=== PATIENT | female | born 1980 | race Caucasian/White ===

== ENCOUNTER 2017-08-09 18:12 | Emergency (ER) | payer OTHER, MEDICAID ==
[~2017-08-09] VITALS: Ht 170.2 cm; Wt 83.9 kg
[2017-08-09] MEDS ORDERED: CLONAZEPAM 0.50.5 M1 PO (18:24)
[2017-08-09] MEDS ORDERED: NORCO 5-325 TA1 EAC1 PO ×2 (19:18→19:19)
[2017-08-09 19:27] VITALS: BP 143/77
[2017-08-10] MEDS ORDERED: IBUPROFEN 800800 M1 PO (11:58)
[2017-08-10] MEDS ORDERED: HYDROCODONE-AP1 EAC6 PO (11:58)
== END 2017-08-09 19:27 | disposition home or self-care (01) ==
LOC: M.ERS 18:12
DX: S92.511A Displaced fracture of proximal phalanx of right lesser toe(s), initial encounter for closed fracture (principal); W18.39XA Other fall on same level, initial encounter; Y93.89 Activity, other specified; Y92.89 Other specified places as the place of occurrence of the external cause; Y99.8 Other external cause status

== ENCOUNTER 2017-08-10 11:12 | Emergency (ER) | payer OTHER, MEDICAID ==
[~2017-08-10] VITALS: Ht 170.2 cm; Wt 83.9 kg
[~2017-08-10 11:12] MED LIST: CLONAZEPAM 0.50.5 M1 PO; NORCO 5-325 TA1 EAC1 PO
[2017-08-10] MEDS ORDERED: IBUPROFEN 800800 M1 PO (11:58)
[2017-08-10] MEDS ORDERED: HYDROCODONE-AP1 EAC6 PO (11:58)
[2017-08-10 12:38] VITALS: BP 137/81
== END 2017-08-10 12:38 | disposition home or self-care (01) ==
LOC: M.ERS 11:12
DX: S92.511D Displaced fracture of proximal phalanx of right lesser toe(s), subsequent encounter for fracture with routine healing (principal); W06.XXXD Fall from bed, subsequent encounter

== ENCOUNTER 2017-10-19 19:56 | Emergency (ER) | payer OTHER, MEDICAID ==
[~2017-10-19] VITALS: Ht 170.2 cm; Wt 81.7 kg
[~2017-10-19 19:56] MED LIST changes: +HYDROCODONE-AP1 EAC6 PO; +IBUPROFEN 800800 M1 PO
[2017-10-19] MEDS ORDERED: ZOLOFT (20:05)
[2017-10-19] MEDS ORDERED: BUSPAR (20:05)
[2017-10-19 20:34] LABS: ABSOLUTE BASOPHILS 0.1 thou/uL (0.0-0.2); ABSOLUTE EOSINOPHILS 0.1 thou/uL (0.0-0.7); ABSOLUTE LYMPHOCYTES 3.1 thou/uL (0.8-5.3); ABSOLUTE MONOCYTES 0.9 thou/uL (0.0-1.2); ABSOLUTE NEUTROPHILS 7.9 thou/uL (1.6-8.1); BASOPHILS 0.9 %; HEMATOCRIT 36.9 % (37.0-47.0); HEMOGLOBIN 12.4 gm/dL (12.0-15.0); LYMPHOCYTES 25.3 %; MCH 29.9 pg (26.0-34.0); MCHC 33.5 g/dL (28.0-37.0); MCV 89.1 fL (80.0-100.0); MONOCYTES 7.5 %; MPV 8.1 fl. (7.2-11.1); NUCLEATED RBCS 0 /100WBC; PLATELET COUNT* 250 thou/uL (150-400); POLYS 65.3 %; RBC 4.14 mil/uL (4.20-5.00); RDW-CV 14.7 % (10.5-14.5); WBC 12.2 thou/uL (4.0-11.0)
[2017-10-19 20:41] LABS: ANION GAP 8 mmol/L (7-16); BUN 10 mg/dL (7-18); CALCIUM 8.2 mg/dL (8.5-10.1); CHLORIDE 107 mmol/L (98-107); CO2 27 mmol/L (21-32); CREATININE 0.6 mg/dL (0.6-1.3); GLUCOSE 117 mg/dL (70-99); POTASSIUM 3.6 mmol/L (3.5-5.1); SODIUM 142 mmol/L (136-145)
[2017-10-19 20:48] LABS: ALBUMIN 3.3 g/dL (3.4-5.0); ALKALINE PHOSPHATASE 81 U/L (46-116); LIPASE 301 U/L (73-393); SGOT 31 U/L (15-37); SGPT 32 U/L (30-65); TOTAL BILIRUBIN 0.1 mg/dL (<0.1-1.0); TOTAL PROTEIN 6.4 g/dL (6.4-8.2); TROPONIN-I LEVEL <0.06 ng/mL (<0.06)
[2017-10-19 21:11] LABS: URINE BILIRUBIN NEGATIVE (Negative); URINE BLOOD TRACE (Negative); URINE CLARITY CLEAR; URINE COLOR STRAW; URINE GLUCOSE-RANDOM NEGATIVE (Negative); URINE KETONES NEGATIVE (Negative); URINE LEUKOCYTES-REFLEX 2+ (Negative); URINE NITRITE-REFLEX NEGATIVE (Negative); URINE PROTEIN NEGATIVE (Negative); URINE SPECIFIC GRAVITY <= 1.005 (1.005-1.030); URINE UROBILINOGEN 0.2 E.U./dl (0.2-1.0)
[2017-10-19 21:17] LABS: SQUAMOUS 4-10 Moderate /LPF (0-3)
[2017-10-19 21:17] LABS: AMP/METHAMP Negative (Negative); BARBITURATES POSITIVE (Negative); BENZODIAZEPINES POSITIVE (Negative); COCAINE Negative (Negative); METHADONE Negative (Negative); OPIATES Negative (Negative); PCP Negative (Negative); THC Negative (Negative)
[2017-10-19 21:18] LABS: BACTERIA-REFLEX None Seen /HPF (None Seen); CASTS None Seen /LPF (None Seen); CRYSTALS None Seen /LPF (None Seen); MUCUS 0-3 Light strn/LPF (None Seen); URINE RBC None Seen /HPF (0-2); URINE WBC-REFLEX 0-5 Rare /HPF (0-5)
[2017-10-19 22:17] VITALS: BP 137/86
--- NOTE | 2017-10-20 14:48 | EKG ---
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
== END 2017-10-19 22:18 | disposition home or self-care (01) ==
LOC: M.ERS 19:56
PROVIDERS: Emergency Medicine
DX: R07.89 Other chest pain (principal); F17.210 Nicotine dependence, cigarettes, uncomplicated

== ENCOUNTER 2018-04-09 11:52 | Emergency (ER) | payer OTHER, MEDICAID ==
[~2018-04-09] VITALS: Ht 170.2 cm; Wt 90.7 kg
[~2018-04-09 11:52] MED LIST changes: +BUSPAR; +ZOLOFT
[2018-04-09] MEDS ORDERED: ZOLOFT50 MG PO (12:08)
[2018-04-09] MEDS ORDERED: ABILIFY10 MG PO (12:08)
[2018-04-09] MEDS ORDERED: CLONAZEPAM 0.50.5 M1 PO (12:09)
[2018-04-09] MEDS ORDERED: BUSPIRONE HCL10 MG PO (12:10)
[2018-04-09 12:13] LABS: URINE BILIRUBIN NEGATIVE (Negative); URINE BLOOD 2+ (Negative); URINE CLARITY CLEAR; URINE COLOR YELLOW; URINE GLUCOSE-RANDOM NEGATIVE (Negative); URINE KETONES TRACE (Negative); URINE LEUKOCYTES-REFLEX NEGATIVE (Negative); URINE NITRITE-REFLEX NEGATIVE (Negative); URINE PROTEIN 1+ (Negative); URINE SPECIFIC GRAVITY >= 1.030 (1.005-1.030); URINE UROBILINOGEN 0.2 E.U./dl (0.2-1.0)
[2018-04-09 12:22] LABS: BACTERIA-REFLEX 1-9 Few /HPF (None Seen); CASTS None Seen /LPF (None Seen); CRYSTALS None Seen /LPF (None Seen); MUCUS 4-6 Moderate strn/LPF (None Seen); SQUAMOUS 0-3 Few /LPF (0-3); URINE RBC 3-10 Few /HPF (0-2); URINE WBC-REFLEX 0-5 Rare /HPF (0-5)
[2018-04-09 12:23] LABS: ABSOLUTE BASOPHILS 0.1 thou/uL (0.0-0.2); ABSOLUTE EOSINOPHILS 0.1 thou/uL (0.0-0.7); ABSOLUTE LYMPHOCYTES 2.4 thou/uL (0.8-5.3); ABSOLUTE MONOCYTES 0.8 thou/uL (0.0-1.2); ABSOLUTE NEUTROPHILS 6.2 thou/uL (1.6-8.1); BASOPHILS 1.3 %; EOSINOPHILS 0.5 %; HEMATOCRIT 38.7 % (37.0-47.0); HEMOGLOBIN 12.9 gm/dL (12.0-15.0); LYMPHOCYTES 24.5 %; MCH 29.6 pg (26.0-34.0); MCHC 33.5 g/dL (28.0-37.0); MCV 88.5 fL (80.0-100.0); MONOCYTES 8.8 %; MPV 7.5 fl. (7.2-11.1); NUCLEATED RBCS 0 /100WBC; PLATELET COUNT* 400 thou/uL (150-400); POLYS 64.9 %; RBC 4.37 mil/uL (4.20-5.00); RDW-CV 14.5 % (10.5-14.5); WBC 9.6 thou/uL (4.0-11.0)
[2018-04-09 12:34] LABS: CALCIUM 8.2 mg/dL (8.5-10.1); CREATININE 0.6 mg/dL (0.6-1.3); POTASSIUM 3.2 mmol/L (3.5-5.1)
[2018-04-09 12:38] LABS: ALBUMIN 3.6 g/dL (3.4-5.0); TOTAL BILIRUBIN 0.2 mg/dL (<0.1-1.0); TOTAL PROTEIN 7.4 g/dL (6.4-8.2)
[2018-04-09] MEDS ORDERED: IBUPROFEN 800800 M1 PO (12:47)
[2018-04-09 13:08] VITALS: BP 128/83
== END 2018-04-09 13:08 | disposition home or self-care (01) ==
LOC: M.ERS 11:52
PROVIDERS: Nurse Practitioner Family
DX: R10.30 Lower abdominal pain, unspecified (principal); R19.7 Diarrhea, unspecified; F17.210 Nicotine dependence, cigarettes, uncomplicated

== ENCOUNTER 2018-06-25 14:19 | Emergency (ER) | payer OTHER, MEDICAID ==
[~2018-06-25] VITALS: Ht 170.2 cm; Wt 90.7 kg
[~2018-06-25 14:19] MED LIST changes: +ABILIFY10 MG PO; +BUSPIRONE HCL10 MG PO; +ZOLOFT50 MG PO
[2018-06-25] MEDS ORDERED: KEFLEX500 M1 PO (14:59)
[2018-06-25] MEDS ORDERED: LIDOCAINE VISC100 ML TOP (14:59)
[2018-06-25 15:18] VITALS: BP 130/86
== END 2018-06-25 15:18 | disposition home or self-care (01) ==
LOC: M.ERS 14:19
DX: L97.129 Non-pressure chronic ulcer of left thigh with unspecified severity (principal); N80.9 Endometriosis, unspecified; F17.210 Nicotine dependence, cigarettes, uncomplicated

== ENCOUNTER 2018-07-14 11:42 | Emergency (ER) | payer OTHER, MEDICAID ==
[~2018-07-14] VITALS: Ht 170.2 cm; Wt 90.7 kg
[~2018-07-14 11:42] MED LIST changes: +KEFLEX500 M1 PO; +LIDOCAINE VISC100 ML TOP
[2018-07-14] MEDS ORDERED: HYDROCODONE-AP1 EAC6 PO (12:50)
[2018-07-14] MEDS ORDERED: KEFLEX500 M1 PO (12:50)
[2018-07-14 13:04] VITALS: BP 136/92
== END 2018-07-14 13:05 | disposition home or self-care (01) ==
LOC: M.ERS 11:42
DX: L02.416 Cutaneous abscess of left lower limb (principal); N80.9 Endometriosis, unspecified; F17.210 Nicotine dependence, cigarettes, uncomplicated

== ENCOUNTER 2018-08-22 10:54 | Emergency (ER) | payer OTHER, MEDICAID ==
[~2018-08-22] VITALS: Ht 170.2 cm; Wt 97.5 kg
[2018-08-22] MEDS ORDERED: SINEMET 10-1001 EAC1 PO (11:06)
[2018-08-22] MEDS ORDERED: ZOLOFT25 MG PO (11:07)
[2018-08-22] MEDS ORDERED: ACETAMINOPHEN-1 EAC1 PO (11:27)
[2018-08-22] MEDS ORDERED: ROBITUSSIN100 MG/53 PO (11:27)
[2018-08-22] MEDS ORDERED: TESSALON PERLE100 MG PO (11:27)
[2018-08-22] MEDS ORDERED: ZPAK PO (11:27)
[2018-08-22] MEDS ORDERED: MEDROLDOSEPACK PO (11:27)
[2018-08-22 11:39] VITALS: BP 119/74
== END 2018-08-22 11:39 | disposition home or self-care (01) ==
LOC: M.ERS 10:54
DX: J20.9 Acute bronchitis, unspecified (principal); F17.210 Nicotine dependence, cigarettes, uncomplicated

== ENCOUNTER 2019-02-17 13:40 | Emergency (ER) | payer OTHER, MEDICAID ==
[~2019-02-17] VITALS: Ht 170.2 cm; Wt 99.8 kg
[~2019-02-17 13:40] MED LIST changes: +ACETAMINOPHEN-1 EAC1 PO; +AUGMENTIN 875-1 EACH PO; +BACLOFEN5 MG PO; +FLAGYL500 M1 PO; +MEDROLDOSEPACK PO; +ONDANSETRON HCL4 M2 PO; +ROBITUSSIN100 MG/53 PO; +SINEMET 10-1001 EAC1 PO; +TESSALON PERLE100 MG PO; +ZOLOFT25 MG PO; +ZPAK PO
[2019-02-17 14:25] VITALS: BP 151/88
== END 2019-02-17 14:25 | disposition home or self-care (01) ==
LOC: M.ERS 13:40
DX: S90.31XA Contusion of right foot, initial encounter (principal); N80.9 Endometriosis, unspecified; F17.210 Nicotine dependence, cigarettes, uncomplicated; W22.8XXA Striking against or struck by other objects, initial encounter; Y93.89 Activity, other specified; Y92.89 Other specified places as the place of occurrence of the external cause; Y99.8 Other external cause status

== ENCOUNTER 2019-04-16 09:34 | Emergency (ER) | payer OTHER, MEDICAID ==
[~2019-04-16] VITALS: Ht 170.2 cm; Wt 99.8 kg
[2019-04-16] MEDS ORDERED: VICODIN 5-3001 EACH PO (09:50)
[2019-04-16 10:43] LABS: URINE BILIRUBIN NEGATIVE (Negative); URINE BLOOD NEGATIVE (Negative); URINE CLARITY CLEAR; URINE COLOR YELLOW; URINE GLUCOSE-RANDOM NEGATIVE (Negative); URINE KETONES NEGATIVE (Negative); URINE LEUKOCYTES-REFLEX TRACE (Negative); URINE NITRITE-REFLEX NEGATIVE (Negative); URINE PROTEIN NEGATIVE (Negative); URINE SPECIFIC GRAVITY 1.025 (1.005-1.030); URINE UROBILINOGEN 0.2 E.U./dl (0.2-1.0)
[2019-04-16 10:53] LABS: SQUAMOUS >10 Many /LPF (0-3)
[2019-04-16 10:53] LABS: ANION GAP 11 mmol/L (7-16); BUN 7 mg/dL (7-18); CALCIUM 7.1 mg/dL (8.5-10.1); CHLORIDE 110 mmol/L (98-107); CO2 20 mmol/L (21-32); CREATININE 0.6 mg/dL (0.6-1.3); GLUCOSE 91 mg/dL (70-99); HEMATOCRIT 33.8 % (37.0-47.0); HEMOGLOBIN 11.5 gm/dL (12.0-15.0); MCH 29.1 pg (26.0-34.0); MCHC 33.9 g/dL (28.0-37.0); MPV 8.4 fl. (7.2-11.1); NUCLEATED RBCS 0 /100WBC; PLATELET COUNT* 223 thou/uL (150-400); RBC 3.93 mil/uL (4.20-5.00); RDW-CV 15.2 % (10.5-14.5); SODIUM 141 mmol/L (136-145); WBC 11.3 thou/uL (4.0-11.0)
[2019-04-16 10:54] LABS: BACTERIA-REFLEX 1-9 Few /HPF (None Seen); CASTS None Seen /LPF (None Seen); CRYSTALS None Seen /LPF (None Seen); MUCUS >6 Heavy strn/LPF (None Seen); URINE RBC 0-2 Rare /HPF (0-2); URINE WBC-REFLEX 0-5 Rare /HPF (0-5)
[2019-04-16 10:54] LABS: POTASSIUM 2.7 mmol/L (3.5-5.1)
[2019-04-16 11:05] LABS: ALBUMIN 2.5 g/dL (3.4-5.0); ALKALINE PHOSPHATASE 72 U/L (46-116); LIPASE 95 U/L (73-393); SGOT 12 U/L (15-37); SGPT 14 U/L (30-65); TOTAL PROTEIN 5.4 g/dL (6.4-8.2)
[2019-04-16 11:06] LABS: TOTAL BILIRUBIN < 0.1 mg/dL (<0.1-1.0)
[2019-04-16 11:31] LABS: ABSOLUTE EOSINOPHILS 0.1 thou/uL (0.0-0.7); ABSOLUTE LYMPHOCYTES 3.3 thou/uL (0.8-5.3); ABSOLUTE MONOCYTES 0.6 thou/uL (0.0-1.2); ABSOLUTE NEUTROPHILS 7.3 thou/uL (1.6-8.1); PLATELET ESTIMATE ADEQUATE
[2019-04-16 11:32] LABS: ANISOCYTOSIS Occasional
[2019-04-16 12:50] VITALS: BP 146/88
--- NOTE | 2019-04-17 10:42 | EKG ---
[place] [address] ELECTROCARDIOGRAM REPORT Name: STEPHEN NIELSEN Room: [facility]#: [id number] Admission: 04/16/19 Attend Phys: Discharge: 04/16/19 Date of : 82 Report #: [id number] THIS REPORT FOR: //name// [facility] ED Test Date: 2019-04-16 Test Time: 12:02:05 Pat Name: STEPHEN NIELSEN Department: Room: Gender: F Logistics Support: : 1980 Requested By: Mark Pemberton Order Number: [id number] MD: Tanner Huerta Measurements Intervals [place] Rate: 84 P: 52 NE: 138 QRS: 75 QRSD: 103 T: 26 QT: 396 QTc: 469 Interpretive Statements Sinus rhythm Low voltage, precordial leads Compared to ECG 10/19/2017 20:05:14 No significant changes Electronically Signed On 04-17-2019 10:42:22 CDT by Tanner Huerta [email or web address] <ELECTRONICALLY SIGNED> By: Tanner Huerta MD, [facility] 04/17/19 1042 D: 09/1201 01 Tanner Huerta MD, FACC /EPI
--- NOTE | 2019-04-18 11:09 | EKG ---
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
== END 2019-04-16 12:51 | disposition short-term general hospital (02) ==
LOC: M.ERS 09:34
PROVIDERS: Emergency Medicine Emergency Medical Services
DX: G89.18 Other acute postprocedural pain (principal); R10.32 Left lower quadrant pain; N80.9 Endometriosis, unspecified; F17.210 Nicotine dependence, cigarettes, uncomplicated

== ENCOUNTER 2019-04-24 08:47 | Emergency (ER) | payer OTHER, MEDICAID ==
[~2019-04-24] VITALS: Ht 170.2 cm; Wt 99.8 kg
[~2019-04-24 08:47] MED LIST changes: +VICODIN 5-3001 EACH PO
[2019-04-24 09:08] LABS: URINE BILIRUBIN NEGATIVE (Negative); URINE BLOOD NEGATIVE (Negative); URINE CLARITY SL CLOUDY; URINE COLOR YELLOW; URINE GLUCOSE-RANDOM NEGATIVE (Negative); URINE KETONES NEGATIVE (Negative); URINE LEUKOCYTES-REFLEX TRACE (Negative); URINE NITRITE-REFLEX NEGATIVE (Negative); URINE PROTEIN NEGATIVE (Negative); URINE SPECIFIC GRAVITY 1.015 (1.005-1.030); URINE UROBILINOGEN 0.2 E.U./dl (0.2-1.0)
[2019-04-24 09:12] LABS: SQUAMOUS >10 Many /LPF (0-3)
[2019-04-24 09:15] LABS: CASTS None Seen /LPF (None Seen); CRYSTALS None Seen /LPF (None Seen); MUCUS 4-6 Moderate strn/LPF (None Seen); URINE RBC 0-2 Rare /HPF (0-2); URINE WBC-REFLEX 0-5 Rare /HPF (0-5); YEAST-REFLEX Present (None Seen)
[2019-04-24 09:42] LABS: ABSOLUTE BASOPHILS 0.1 thou/uL (0.0-0.2); ABSOLUTE EOSINOPHILS 0.1 thou/uL (0.0-0.7); ABSOLUTE LYMPHOCYTES 1.5 thou/uL (0.8-5.3); ABSOLUTE MONOCYTES 0.6 thou/uL (0.0-1.2); ABSOLUTE NEUTROPHILS 5.2 thou/uL (1.6-8.1); BASOPHILS 1.2 %; EOSINOPHILS 1.3 %; HEMATOCRIT 38.1 % (37.0-47.0); HEMOGLOBIN 12.9 gm/dL (12.0-15.0); LYMPHOCYTES 19.9 %; MCH 28.9 pg (26.0-34.0); MCHC 33.8 g/dL (28.0-37.0); MCV 85.4 fL (80.0-100.0); MPV 7.3 fl. (7.2-11.1); NUCLEATED RBCS 0 /100WBC; PLATELET COUNT* 369 thou/uL (150-400); POLYS 69.6 %; RBC 4.46 mil/uL (4.20-5.00); RDW-CV 15.3 % (10.5-14.5); WBC 7.4 thou/uL (4.0-11.0)
[2019-04-24 09:54] LABS: ANION GAP 11 mmol/L (7-16); BUN 8 mg/dL (7-18); CALCIUM 8.8 mg/dL (8.5-10.1); CHLORIDE 103 mmol/L (98-107); CO2 25 mmol/L (21-32); CREATININE 0.7 mg/dL (0.6-1.3); GLUCOSE 104 mg/dL (70-99); POTASSIUM 3.6 mmol/L (3.5-5.1); SODIUM 139 mmol/L (136-145)
[2019-04-24 10:03] LABS: ALBUMIN 3.1 g/dL (3.4-5.0); ALKALINE PHOSPHATASE 157 U/L (46-116); LIPASE 108 U/L (73-393); SGOT 16 U/L (15-37); SGPT 48 U/L (30-65); TOTAL BILIRUBIN 0.2 mg/dL (<0.1-1.0); TOTAL PROTEIN 7.2 g/dL (6.4-8.2); TROPONIN-I LEVEL <0.06 ng/mL (<0.06)
[2019-04-24] MEDS ORDERED: BENTYL 20 MG TA20 M1 PO (12:45)
[2019-04-24] MEDS ORDERED: LEVAQUIN 750 M750 MG PO (12:50)
[2019-04-24 13:05] VITALS: BP 129/85
--- NOTE | 2019-04-25 16:16 | EKG ---
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
== END 2019-04-24 13:06 | disposition still patient (30) ==
LOC: M.ERS 08:47
PROVIDERS: Emergency Medicine Emergency Medical Services
DX: R10.84 Generalized abdominal pain (principal); R42 Dizziness and giddiness; N80.9 Endometriosis, unspecified; F17.210 Nicotine dependence, cigarettes, uncomplicated; Z98.890 Other specified postprocedural states

== ENCOUNTER 2019-06-19 04:30 | Emergency (ER) | payer OTHER, MEDICAID ==
[~2019-06-19] VITALS: Ht 170.2 cm; Wt 90.7 kg
[~2019-06-19 04:30] MED LIST changes: +BENTYL 20 MG TA20 M1 PO; +LEVAQUIN 750 M750 MG PO
[2019-06-19] MEDS ORDERED: ENTOCORT EC 3 MG3 MG PO (04:40)
[2019-06-19] MEDS ORDERED: ZPAK PO (04:53)
[2019-06-19] MEDS ORDERED: PREDNISONE 20 M20 M1 PO (04:53)
[2019-06-19] MEDS ORDERED: PROMETH-CODEIN 65 ML PO (04:53)
[2019-06-19 05:02] VITALS: BP 138/86
[2019-06-19] MEDS ORDERED: NORCO 5-325 TA1 EAC1 PO (06:16)
== END 2019-06-19 05:02 | disposition home or self-care (01) ==
LOC: M.ERS 04:30
DX: J40 Bronchitis, not specified as acute or chronic (principal); N80.9 Endometriosis, unspecified; F17.210 Nicotine dependence, cigarettes, uncomplicated

== ENCOUNTER 2019-06-19 05:35 | Emergency (ER) | payer OTHER, MEDICAID ==
[~2019-06-19] VITALS: Ht 170.2 cm; Wt 90.7 kg
[~2019-06-19 05:35] MED LIST changes: +ENTOCORT EC 3 MG3 MG PO; +PREDNISONE 20 M20 M1 PO; +PROMETH-CODEIN 65 ML PO
[2019-06-19] MEDS ORDERED: NORCO 5-325 TA1 EAC1 PO (06:16)
[2019-06-19 06:27] VITALS: BP 145/97
== END 2019-06-19 06:27 | disposition home or self-care (01) ==
LOC: M.ERS 05:35
DX: S93.491A Sprain of other ligament of right ankle, initial encounter (principal); N80.9 Endometriosis, unspecified; F17.210 Nicotine dependence, cigarettes, uncomplicated; X50.1XXA Overexertion from prolonged static or awkward postures, initial encounter; Y93.89 Activity, other specified; Y92.481 Parking lot as the place of occurrence of the external cause; Y99.8 Other external cause status

== ENCOUNTER 2019-09-02 17:46 | Emergency (ER) | payer OTHER, MEDICAID ==
[~2019-09-02] VITALS: Ht 170.2 cm; Wt 99.8 kg
[2019-09-02 18:19] LABS: URINE BILIRUBIN NEGATIVE (Negative); URINE BLOOD NEGATIVE (Negative); URINE CLARITY CLEAR; URINE COLOR YELLOW; URINE GLUCOSE-RANDOM NEGATIVE (Negative); URINE KETONES NEGATIVE (Negative); URINE LEUKOCYTES-REFLEX NEGATIVE (Negative); URINE NITRITE-REFLEX NEGATIVE (Negative); URINE PROTEIN NEGATIVE (Negative); URINE SPECIFIC GRAVITY 1.025 (1.005-1.030); URINE UROBILINOGEN 0.2 E.U./dl (0.2-1.0)
[2019-09-02] MEDS ORDERED: BACTRIM DS TAB1 EACH PO (18:33)
[2019-09-02] MEDS ORDERED: KEFLEX500 M1 PO (18:33)
[2019-09-02] MEDS ORDERED: TRAMADOL 50 MG50 MG PO (18:36)
[2019-09-02 18:52] VITALS: BP 138/97
== END 2019-09-02 18:53 | disposition home or self-care (01) ==
LOC: M.ERS 17:46
PROVIDERS: Nurse Practitioner Psychiatric/Mental Health
DX: N76.4 Abscess of vulva (principal); F17.210 Nicotine dependence, cigarettes, uncomplicated; N80.9 Endometriosis, unspecified

== ENCOUNTER 2019-09-26 09:12 | Emergency (ER) | payer OTHER, MEDICAID ==
[~2019-09-26] VITALS: Ht 170.2 cm; Wt 99.8 kg
[~2019-09-26 09:12] MED LIST changes: +BACTRIM DS TAB1 EACH PO; +TRAMADOL 50 MG50 MG PO
[2019-09-26 09:53] LABS: INFLUENZA A ANTIGEN Negative (Negative); INFLUENZA B ANTIGEN Negative (Negative)
[2019-09-26] MEDS ORDERED: TESSALON PERLE100 M1 PO (09:59)
[2019-09-26] MEDS ORDERED: ZOFRAN ODT4 MG DISSOLVE (09:59)
[2019-09-26] MEDS ORDERED: VENTOLIN HFA 1818 GM INH (09:59)
[2019-09-26 11:13] VITALS: BP 140/78
== END 2019-09-26 11:15 | disposition home or self-care (01) ==
LOC: M.ERS 09:12
PROVIDERS: Emergency Medicine Emergency Medical Services
DX: J06.9 Acute upper respiratory infection, unspecified (principal); J02.9 Acute pharyngitis, unspecified; M79.10 Myalgia, unspecified site; R11.10 Vomiting, unspecified; R51 Headache; F17.210 Nicotine dependence, cigarettes, uncomplicated; N80.9 Endometriosis, unspecified; Z79.899 Other long term (current) drug therapy

== ENCOUNTER 2019-10-19 07:33 | Emergency (ER) | payer OTHER, MEDICAID ==
[~2019-10-19] VITALS: Ht 170.2 cm; Wt 106.6 kg
[~2019-10-19 07:33] MED LIST changes: +TESSALON PERLE100 M1 PO; +VENTOLIN HFA 1818 GM INH; +ZOFRAN ODT4 MG DISSOLVE
[2019-10-19] MEDS ORDERED: ALPRAZOLAM XR3 MG PO (08:01)
[2019-10-19] MEDS ORDERED: ZOLOFT50 M1 PO (08:01)
[2019-10-19] MEDS ORDERED: BACLOFEN5 MG PO (08:02)
[2019-10-19 08:29] LABS: CALCIUM 8.3 mg/dL (8.5-10.1); CREATININE 0.7 mg/dL (0.6-1.3); POTASSIUM 4.1 mmol/L (3.5-5.1)
[2019-10-19] MEDS ORDERED: NORCO 5-325 TA1 EAC1 PO (10:16)
[2019-10-19] MEDS ORDERED: ZPAK PO (10:21)
[2019-10-19 10:48] VITALS: BP 123/92
== END 2019-10-19 10:49 | disposition home or self-care (01) ==
LOC: M.ERS 07:33
PROVIDERS: Emergency Medicine Emergency Medical Services
DX: B34.9 Viral infection, unspecified (principal); R07.81 Pleurodynia; R68.89 Other general symptoms and signs; N80.9 Endometriosis, unspecified; F17.210 Nicotine dependence, cigarettes, uncomplicated

== ENCOUNTER 2019-10-21 07:38 | Emergency (ER) | payer OTHER, MEDICAID ==
[~2019-10-21] VITALS: Ht 170.2 cm; Wt 105.7 kg
[~2019-10-21 07:38] MED LIST changes: +ALPRAZOLAM XR3 MG PO; +ZOLOFT50 M1 PO
[2019-10-21 08:10] VITALS: BP 127/86
== END 2019-10-21 08:11 | disposition left against medical advice (07) ==
LOC: M.ERS 07:38
DX: B34.9 Viral infection, unspecified (principal); Z76.5 Malingerer [conscious simulation]; N80.9 Endometriosis, unspecified; F17.210 Nicotine dependence, cigarettes, uncomplicated